=== PATIENT | female | born 1995 | race Two or more races ===

== ENCOUNTER → 2017-10-06 | Outpatient (CLI) | payer OTHER | END | disposition home or self-care (01) | LOC: LAB 14:16 | PROVIDERS: ATTEND Preventive Medicine Preventive Medicine/Occupational Environmental Medicine | DX: Z02.1 Encounter for pre-employment examination (principal) | CPT/HCPCS: 36415; 86706; 86735; 86762; 86765 ==

== ENCOUNTER 2019-09-08 10:27 | Emergency (ER) | payer MEDICAID, OTHER ==
[~2019-09-08] VITALS: Ht 172.7 cm; Wt 73.5 kg
[2019-09-08 10:39] VITALS: BP 132/97
[2019-09-08] MEDS ORDERED: TETANUS-DIPTH-ACEL PERTUSSIS 0.5ML SYR Tdap IM ONE (11:00)
[2019-09-08] MEDS ORDERED: LIDOCAINE 1% HCL (LOCAL ANESTH.) INJ 20ML MDV IJ ONE (11:00)
== END 2019-09-08 11:23 | disposition home or self-care (01) ==
LOC: EDSEX 10:27 → ER 10:27
DX: S61.412A Laceration without foreign body of left hand, initial encounter (principal); W20.8XXA Other cause of strike by thrown, projected or falling object, initial encounter; Y93.89 Activity, other specified; Y92.89 Other specified places as the place of occurrence of the external cause; Y99.8 Other external cause status
CPT/HCPCS: 12001; 90471; 90715; 99283; J2001

== ENCOUNTER → 2021-12-26 | Emergency (ER) | payer MEDICAID ==
[~2021-12-26] MED LIST: AMOX-277 PO; IBUP800T26 PO
== END | disposition left against medical advice (07) ==
LOC: ER 23:29
DX: Z00.00 Encounter for general adult medical examination without abnormal findings (principal); Z53.21 Procedure and treatment not carried out due to patient leaving prior to being seen by health care provider; W54.0XXA Bitten by dog, initial encounter; Y93.89 Activity, other specified; Y92.89 Other specified places as the place of occurrence of the external cause; Y99.8 Other external cause status

== ENCOUNTER 2021-12-27 16:57 | Emergency (ER) | payer MEDICAID ==
[~2021-12-27] VITALS: Ht 175.3 cm; Wt 80.0 kg
[2021-12-27] MEDS ORDERED: cefTRIAXone SOD 1,000 MG VL IM ONE (18:45)
[2021-12-27] MEDS ORDERED: KETOROLAC TROMETH 30 MG/ML 1ML VIAL IM ONE (18:45)
[2021-12-27] MEDS ORDERED: NEOMYCIN-BACITRACIN-POLYM UNITDOSE PKG TOP OINT TOP ONE (18:45)
[2021-12-27] MEDS ORDERED: IBUP800T26 PO (19:09)
[2021-12-27] MEDS ORDERED: AMOX-277 PO (19:09)
[2021-12-27] MEDS ORDERED: LIDOCAINE 1% HCL (LOCAL ANESTH.) INJ 20ML MDV ID ONE (19:15)
[2021-12-27 19:28] VITALS: BP 130/85
== END 2021-12-27 19:09 | disposition home or self-care (01) ==
LOC: ER 16:57
DX: S81.852A Open bite, left lower leg, initial encounter (principal); L03.116 Cellulitis of left lower limb; F17.210 Nicotine dependence, cigarettes, uncomplicated; W54.0XXA Bitten by dog, initial encounter; Y93.89 Activity, other specified; Y92.89 Other specified places as the place of occurrence of the external cause; Y99.8 Other external cause status
CPT/HCPCS: 96372; 99284; J0696; J1885; J2001

== ENCOUNTER → 2023-12-26 | Emergency (ER) | payer MEDICAID ==
[~2023-12-26] VITALS: Ht 167.6 cm; Wt 77.0 kg
[~2023-12-26] MED LIST changes: -AMOX-277 PO; +AMOX875T4 PO; +IBUP-1455 PO; -IBUP800T26 PO
[2023-12-26] MEDS: HYDROcodone-ACET 10/325MG TAB PO ONE (21:30)
[2023-12-27 00:15] VITALS: BP 121/83; PULSE 102; RESP 13; TEMP 98.9; O2SAT 97
== END | disposition home or self-care (01) ==
LOC: EDUNIT# 20:55 → ER 21:03 → EDBD 21:03
DX: S52.202A Unspecified fracture of shaft of left ulna, initial encounter for closed fracture (principal); S93.401A Sprain of unspecified ligament of right ankle, initial encounter; S80.02XA Contusion of left knee, initial encounter; S09.8XXA Other specified injuries of head, initial encounter; Y04.2XXA Assault by strike against or bumped into by another person, initial encounter; Y93.89 Activity, other specified; Y92.89 Other specified places as the place of occurrence of the external cause; Y99.8 Other external cause status
CPT/HCPCS: 29125; 70450; 73030; 73090; 73562; 73610

== ENCOUNTER 2024-01-01 22:40 | Emergency (ER) | payer MEDICAID ==
[~2024-01-01] VITALS: Ht 175.3 cm; Wt 73.0 kg
[2024-01-01 22:58] VITALS: BP 142/100; PULSE 106; RESP 20; O2SAT 100
== END 2024-01-02 01:12 | disposition left against medical advice (07) ==
LOC: ER 22:40
DX: M79.602 Pain in left arm (principal); Z53.21 Procedure and treatment not carried out due to patient leaving prior to being seen by health care provider